=== PATIENT | female | born 1935 | race Caucasian/White ===

== ENCOUNTER 2023-07-15 09:33 | Emergency (ER) | payer MEDICARE ==
[~2023-07-15] VITALS: Ht 147.3 cm; Wt 54.0 kg
[2023-07-15 10:22] LABS: BASOPHILS ABSOLUTE AUTO 0.02 K/mm3 (0.00-0.23); BASOPHILS PERCENT AUTO 0 % (0-2); EOSINOPHILS ABSOLUTE AUTO 0.02 K/mm3 (0.00-0.68); EOSINOPHILS PERCENT AUTO 0 % (0-6); Hematocrit 39.4 % (33.0-51.0); Hemoglobin 13.3 g/dL (11.5-16.0); IMMATURE GRAN ABSOLUTE AUTO 0.03 K/mm3 (0.00-0.10); IMMATURE GRAN PERCENT AUTO 0 % (0-1); LYMPHOCYTES ABSOLUTE AUTO 0.81 K/mm3 (0.84-5.20); LYMPHOCYTES PERCENT AUTO 9 % (21-46); MONOCYTES ABSOLUTE AUTO 0.69 K/mm3 (0.16-1.47); MONOCYTES PERCENT AUTO 8 % (4-13); Mean Corpuscular HGB 31.8 pg (26.0-34.0); Mean Corpuscular HGB Conc 33.8 g/dL (31.5-36.5); Mean Corpuscular Volume 94 fL (80-100); Mean Platelet Volume 10.2 fL (9.1-12.4); NEUTROPHILS ABSOLUTE AUTO 7.36 K/mm3 (1.96-9.15); NEUTROPHILS PERCENT AUTO 83 % (41-73); Platelet Count 211 K/mm3 (150-400); RDW Coefficient Variation 14.6 % (11.7-14.2); RDW Standard Deviation 50.6 fL (35.1-46.3); Red Blood Cell Count 4.18 M/mm3 (3.80-5.20); White Blood Cell Count 8.93 K/mm3 (4.00-11.30)
[2023-07-15 10:41] LABS: Albumin, Blood 3.5 g/dL (3.4-5.0); Albumin/Globulin Ratio 0.9 (0.8-1.8); Bilirubin, Total 0.8 mg/dL (0.1-1.0); Bun/Creatinine Ratio 17.2 (12.0-20.0); Calcium, Blood 8.8 mg/dL (8.5-10.1); Creatinine, Blood 0.7 mg/dL (0.40-1.00); Globulin, Blood 3.8 g/dL (2.2-4.0); Potassium, Blood 3.6 mmol/L (3.5-5.5); Total Protein, Blood 7.3 g/dL (6.4-8.2)
[2023-07-15 12:55] VITALS: BP 143/91
[2023-07-15] MEDS ORDERED: FOSAMAX70 MG PO (13:09)
[2023-07-15] MEDS ORDERED: ALEN10 PO (13:09)
== END 2023-07-15 13:12 | disposition home or self-care (01) ==
LOC: ER 09:33
PROVIDERS: Physician Assistant
DX: R42 Dizziness and giddiness (principal); I10 Essential (primary) hypertension; Z79.899 Other long term (current) drug therapy
CPT/HCPCS: 70450; 71046; 72125; 80053; 84484; 85025; 93005; 93010; 99284-25

== ENCOUNTER 2024-03-19 07:20 | Emergency (ER) | payer MEDICARE ==
[~2024-03-19] VITALS: Ht 165.1 cm; Wt 65.8 kg
[~2024-03-19 07:20] MED LIST: ALBU90OI INH; ALEN10 PO; Bentyl20 MG PO; DILT120ERA PO; ELIQUIS2.5 MG PO; FOSAMAX70 MG PO; MASOPHEN325 M3 PO; METO100ER PO; OLME20 PO
[2024-03-19 08:07] LABS: BASOPHILS ABSOLUTE AUTO 0.03 K/mm3 (0.00-0.23); BASOPHILS PERCENT AUTO 1 % (0-2); EOSINOPHILS ABSOLUTE AUTO 0.04 K/mm3 (0.00-0.68); EOSINOPHILS PERCENT AUTO 1 % (0-6); Hematocrit 44.2 % (33.0-51.0); Hemoglobin 14.9 g/dL (11.5-16.0); IMMATURE GRAN ABSOLUTE AUTO 0.04 K/mm3 (0.00-0.10); IMMATURE GRAN PERCENT AUTO 1 % (0-1); LYMPHOCYTES PERCENT AUTO 15 % (21-46); MONOCYTES ABSOLUTE AUTO 0.63 K/mm3 (0.16-1.47); MONOCYTES PERCENT AUTO 11 % (4-13); Mean Corpuscular HGB Conc 33.7 g/dL (31.5-36.5); Mean Corpuscular Volume 95 fL (80-100); Mean Platelet Volume 12.2 fL (9.1-12.4); NEUTROPHILS ABSOLUTE AUTO 4.37 K/mm3 (1.96-9.15); NEUTROPHILS PERCENT AUTO 73 % (41-73); NRBC ABSOLUTE 0.08 K/mm3 (0.00-0.02); NRBC Auto 1.3 /100 WBC (0.0-0.2); Platelet Count 159 K/mm3 (150-400); RDW Coefficient Variation 18.4 % (11.7-14.2); RDW Standard Deviation 61.3 fL (35.1-46.3); Red Blood Cell Count 4.65 M/mm3 (3.80-5.20); White Blood Cell Count 6.01 K/mm3 (4.00-11.30)
[2024-03-19 08:24] LABS: Albumin, Blood 3.5 g/dL (3.4-5.0); Albumin/Globulin Ratio 1.1 (0.8-1.8); Bilirubin, Total 2.6 mg/dL (0.1-1.0); Bun/Creatinine Ratio 31.7 (12.0-20.0); Calcium, Blood 9.1 mg/dL (8.5-10.1); Creatinine, Blood 0.98 mg/dL (0.40-1.00); Globulin, Blood 3.1 g/dL (2.2-4.0); Potassium, Blood 3.4 mmol/L (3.5-5.5); Total Protein, Blood 6.6 g/dL (6.4-8.2)
[2024-03-19] MEDS ORDERED: Diltiazem HCl 5 MG / ML 5ML Vial IV ONE (08:35)
[2024-03-19] MEDS ORDERED: Furosemide 10 MG/ML 4ML Vial IV ONE (09:05)
[2024-03-19] MEDS ORDERED: FUROSEMIDE20 MG PO (09:21)
[2024-03-19] MEDS ORDERED: Midodrine HCl2.5 MG PO (09:23)
[2024-03-19 12:34] VITALS: BP 112/78
== END 2024-03-19 12:34 | disposition home or self-care (01) ==
LOC: ER 07:20
PROVIDERS: Emergency Medicine
DX: I48.91 Unspecified atrial fibrillation (principal); I11.0 Hypertensive heart disease with heart failure; I50.30 Unspecified diastolic (congestive) heart failure; Z79.01 Long term (current) use of anticoagulants; Z79.899 Other long term (current) drug therapy
CPT/HCPCS: 71046; 80053; 83880; 84484; 85025; 93005; 93010; J1940

== ENCOUNTER 2024-05-28 06:11 | Day surgery (SDC) | payer MEDICARE ==
[~2024-05-28] VITALS: Ht 147.3 cm; Wt 52.2 kg
[2024-05-28] VITALS (12 sets, daily range): BP systolic 90–150; BP diastolic 62–113
[~2024-05-28 06:11] MED LIST changes: +FUROSEMIDE20 MG PO; +Midodrine HCl2.5 MG PO
[2024-05-28] MEDS ORDERED: Amiodarone HCl200 MG PO (06:25)
[2024-05-28] MEDS ORDERED: Bentyl20 MG PO (06:26)
[2024-05-28] MEDS ORDERED: JARDIANCE10 MG PO (06:27)
[2024-05-28] MEDS ORDERED: SPIR25 PO (06:27)
[2024-05-28] MEDS ORDERED: NS 1,000 ML IV ONE (06:33)
--- NOTE | 2024-05-28 07:07 | NUR ---
PT CARDIOVERTED /C 230J. SB 45-55BPM POST CARDIOVERSION. ASSUMED CARE FROM ANESTHESIA. PT A/0X3 AND VERBALIZING WELL.
[2024-05-28] MEDS ORDERED: METO25ER PO (07:21)
--- NOTE | 2024-05-28 08:00 | NUR ---
PT AMB IN RM /S DIFFICULTY. PT AND VERBALIZED UNDERSTANDING OF WRITTEN AND VERBAL D/C INST. IV REMOVED. SB 50BPM ON D/C.
[2024-05-28] MEDS ORDERED: Propofol 10mg/ml 20 ml Vial (Procedural) IV ONE (10:39)
== END 2024-05-28 23:00 | disposition home or self-care (01) ==
LOC: MHTC 06:11
DX: I48.0 Paroxysmal atrial fibrillation (principal); Z88.0 Allergy status to penicillin
CPT/HCPCS: 92960; 93005; 93010; J2704; J7030